=== PATIENT | male | born 1965 | race Caucasian/White ===

== ENCOUNTER 2024-08-02 04:55 | Observation (INO) ==
--- NOTE | 2024-07-05 08:49 | PAT Medication Instructions ---
Medication Instructions Date of Service July 05, 2024 Home Medications Vitamin C 1 tab PO DAILY Vitamin D3 1 tab PO QAM magnesium 250 mg tablet 250 mg PO QAM DO NOT take the morning of surgery Vitamin C 1 tab PO DAILY Vitamin D3 1 tab PO QAM magnesium 250 mg tablet 250 mg PO QAM Other Notes OTHERWISE NOTHING TO EAT OR DRINK AFTER MIDNIGHT. If you have any questions please call us at [phone] or [phone] or [phone] or [phone]
--- NOTE | 2024-07-07 14:22 | Anesthesiology Consultation ---
Date of Service July 07, 2024 Assessment & Plan (1) Encounter for pre-operative examination: - Outpatient joint assessment: Patient is currently scheduled for inpatient pathway. If re-evaluated and patient/surgeon requests outpatient pathway, patient is acceptable candidate for outpatient joint program from anesthesia standpoint pending surgeon's office assessment of pt motivation/support/completion of same day joint program preop requirements. Chart Review Chart Review: Acceptable Risk for Surgery and Patient seen in Pre Admission Testing Teaching & Discussion Pre-Anesthesia Teaching/Discussion Notes: Instructed NPO after midnight before surgery, except medications with 15 cc of water. Medication instructions provided according to the PAT guidelines. History Surgery Operation Date: 08/02/24 12:00 Proposed Procedures p Left Total Knee Arthroplasty - Prateek Justin, Height/Weight Height: 6 ft 2 in Weight: 102.8 kg Allergies Allergy/AdvReac Type Severity Reaction Status Date / Time No Known Allergies Allergy Verified 07/02/24 16:01 Medications Home Medications Medication Instructions Recorded Confirmed Last Taken Vitamin C 1 tab PO DAILY 07/02/24 07/02/24 Unknown Vitamin D3 1 tab PO QAM 07/02/24 07/02/24 Unknown magnesium 250 mg tablet 250 mg PO QAM 07/02/24 07/02/24 Unknown Past Medical History Medical History Arthritis History of cardiac murmur as a child History of COVID-19 (~2020) 08/2020, [facility], not hosp; asymptomatic Osteoarthritis Peripheral neuropathy bilateral feet 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 Exercise / Class Metabolic Activity II 4-5 Yardwork/Stairs/Walk up hill (denies chest discomfort or shortness of breath with one flight of stairs) Past Family History Family History Father Prostate cancer Mother Myocardial infarction Other No family history of adverse response to anesthesia Denies family history of Ovarian cancer Breast cancer Colorectal cancer Past Surgical History Surgical History H/O hernia repair 2 repairs History of knee surgery Rt History of thumb surgery left Hx of colonoscopy Past Anesthesia History No Hx of Anesthesia Complications and No Family Hx of Anesthesia Complications History of PONV No Hx of PONV and No Hx of Motion Sickness Social History Smoking Status: Never smoker Do You Dip or Chew Tobacco: No Hx Alcohol Use: Yes Alcohol type: beer alcohol intake frequency: a few times a week Hx Substance Use: No substance use type: does not use Review of Systems Snoring, denies witnessed apneas. Patient denies chest pain, shortness of breath, dyspnea on exertion, reflux, fever, chills, cough, wheezing, or palpitations. Physical Exam Vital Signs Vitals BP 121/81 P 70 TEMP 98.3 SP02 95% on RA RESP 18 Physical Patient resting comfortably in chair in no acute distress, alert and oriented, responding appropriately throughout visit Full cervical extension range of motion without pain TMD 3.5 finger breadths Mallampati Score 2 Dentition: intact, denies chipped or loose teeth, caps/crowns, implants or bridges Lungs: normal respiratory effort. Good air movement, clear throughout to auscultation, no adventitious breath sounds Cardiac: regular rate and rhythm, no murmurs noted Carotid arteries: negative bruit bilat Lab Results Anesthesia Preop Results Results Anesthesia Widget: WBC 7.04 K/ul (4.8-10.8) 07/07/24 Hgb 14.7 g/dl (14.0-18.0) 07/07/24 Hct 44.6 % (42.0-52.0) 07/07/24 Plt 234 K/uL (130-400) 07/07/24 Na 140 mmol/L (136-145) 07/07/24 K 4.5 mmol/L (3.5-5.1) 07/07/24 Cl 107 mmol/L (98-107) 07/07/24 CO2 28 mmol/L (21-32) 07/07/24 BUN 20 mg/dl (6-23) 07/07/24 Creat 0.98 mg/dl (0.6-1.4) 07/07/24 Glucose Level 102 mg/dl (70-99(Fasting)) H 07/07/24 PT 10.9 Seconds (9.0-12.0) 07/07/24 PTT 24 Seconds (21-31) 07/07/24 INR 1.0 (0.9-1.1) 07/07/24 Blood Type O Positive 07/07/24 Antibody Screen NEGATIVE 07/07/24 Testing Electrocardiogram Date: 07/07/24 Sinus rhythm with occasional PVCs, rate 65 bpm Chest X-Ray Date: 07/07/24 No acute cardiopulmonary disease.
[2024-08-02] MEDS: LR 500ML BOLUS, THEN 15ML/HR IV SCH (05:48)
[2024-08-02] MEDS: GABAPENTIN 900 MG DOSE PO SCH (05:49)
[2024-08-02] MEDS: LR 60ML/HR IV SCH (05:49)
[2024-08-02] MEDS: dexAMETHasone**PF** 10 MG/ML VIAL IV SCH (05:49)
[2024-08-02] MEDS: FAMOTIDINE 20 MG TAB PO SCH (05:49)
[2024-08-02] MEDS: ACETAMINOPHEN 500 MG TAB PO SCH (05:49)
[2024-08-02] MEDS ORDERED: BUPIVACAINE 0.5 % 5 MG/1 ML PF 10ML VIAL ONE (06:27)
[2024-08-02] MEDS ORDERED: ROPIVACAINE 0.5% 5 MG/ML 30 ML VIAL ONE (06:27)
[2024-08-02] MEDS ORDERED: ATROPINE SULFATE 0.1 MG/ML 10ML SYR IV PRN (06:37)
[2024-08-02] MEDS ORDERED: fentaNYL citrate PF 100 MCG/2 ML VIAL IV PRN (06:37)
[2024-08-02] MEDS ORDERED: ePHEDrine sulfate 50 MG/ML AMP IV PRN (06:37)
[2024-08-02] MEDS ORDERED: ONDANSETRON INJ 2 MG/ML 2 ML VIAL IV PRN ×2 (06:37→10:19)
[2024-08-02] MEDS ORDERED: MIDAZOLAM HCL 1 MG/ML 2ML VIAL ONE (06:39)
[2024-08-02] MEDS ORDERED: fentaNYL citrate PF 100 MCG/2 ML VIAL ONE (06:39)
--- NOTE | 2024-08-02 06:39 | History & Physical Bridge Note ---
Date of Service August 02, 2024 History & Physical Bridge Note I have examined the patient, reviewed the History & Physical and in the interval since the performance of the History & Physical I have noted the following changes of clinical significance: no changes noted
[2024-08-02] MEDS ORDERED: PROPOFOL IV EMULSION 10 MG/ML 20 ML VIAL IV ONE (06:44)
[2024-08-02] MEDS: TRANEXAMIC ACID 1,000 MG **IV Pre-op IV SCH (06:44)
[2024-08-02] MEDS ORDERED: LIDOCAINE 2% 2 ML VIAL/AMP(20MG/ML) INFIL ONE (06:48)
[2024-08-02] MEDS: ceFAZolin 2000MG 2,000 MG/15 ML SYR IV SCH ×2 (06:59→13:59)
[2024-08-02] MEDS: ROPIV 0.5% 246mg, Ketorolac 30mg, EPINEPHrine 0.5mg in NSS INFIL SCH (07:30)
[2024-08-02] MEDS: ORTHO JOINT ANESTHETIC ONE (07:32)
[2024-08-02] MEDS: TRANEXAMIC ACID 1,000 MG **IV Intra-op IV SCH (07:55)
--- NOTE | 2024-08-02 08:21 | Operative Report ---
PG Post Operative Report Pre & Post Diagnosis Operation Date: 08/02/24 07:00 Pre-Op Diagnosis: Left Knee Osteoarthritis Post-Op Diagnosis: Left Knee Osteoarthritis I identified the patient and participated in the time-out.: Yes Procedure Operation Date: 08/02/24 07:00 Actual Procedures p Left Total Knee Arthroplasty(Left) - Prateek Justin DO Surgeon Prateek Justin DO [employer] Utility Worker None Estimated Blood Loss 30 Findings Consistent with Post-Op Diagnosis Specimens Left femoral and tibial bone Description of Procedure Implants used: I used a Chepe Persona total knee arthroplasty system with a size 12 standard PS femur, G tibia, 37 oval patella, and a size 12 CPS polyethylene bearing. All components were cemented in place with Biomet cement. Crow benites [facility] for the above procedure. He was seen in the preoperative holding area and the operative extremity was identified and signed. He was given a preoperative antibiotic, TXA, a spinal anesthetic and an adductor nerve block. He was taken back to the operating room and laid on the table in supine position. He was given basic sedation. The operative knee was then prepped and draped in sterile fashion. A timeout was done, and the patient and the operative extremity was properly identified. A midline incision was made directly over the patella. Dissection was taken down to the extensor mechanism. A medial parapatellar arthrotomy was used. The medial retinaculum was released and the fat pad was mostly excised. The knee was flexed and the ACL, PCL, and meniscus were removed. A drill was sent down the center of the femoral canal followed by an intramedullary marisa. Off that marisa a distal femoral cutting block was placed. 9 mm was resected off the distal femur at 5 of valgus. A posterior referencing AP sizing guide was then placed on the distal femur. The femur measured to be a size 12. 2 drill holes were placed in 3 of external rotation. A 4-in-1 cutting block was then impacted into place. Anterior, posterior, and chamfer cuts were then made. The proximal tibia was then exposed. An external tibial alignment guide was placed. A tibial cut guide was then anchored in place and the proximal tibia was then resected. The posterior aspect of the knee was then opened up and any additional meniscus fragments and osteophytes were removed. The tibia measured to be a size G. The tibial plate was then placed in the appropriate rotation and the tibia was drilled and punched. Trial components were then placed. I used a size 12 CPS polyethylene insert. The knee was brought through a full range of motion and felt to be stable. The peg holes for the femoral component were then drilled. The patella was then everted and 9 mm was resected off the posterior aspect of the patella. The patella measured to be a size 37 oval. 3 peg holes were then drilled. A trial patella was placed. The knee was once again brought through a full range of motion and felt to be stable. Trial components were then removed. The surrounding soft tissues were injected with 100 cc of an orthopedic pain control cocktail. All components were then cemented into place with Biomet cement. The final polyethylene insert was then snapped into place. Once cement was dry the tourniquet was deflated. Hemostasis was obtained. A dilute betadyne lavage was then done for 3 minutes. The joint was then irrigated with normal saline solution. The medial parapatellar arthrotomy was then closed with #1 Vicryl suture. The skin was closed with 2-0 Vicryl, 3-0V lock suture, and sierra. A soft compressive dressing was placed. He was then transferred to a hospital bed and taken to the postanesthesia care unit in stable condition. He tolerated the procedure well. I attest to the content of the Intraoperative Record and any orders documented therein. Any exceptions are noted below.
--- NOTE | 2024-08-02 09:07 | XRay Report ---
XR knee LT 1 or 2V routine HISTORY: 59 years-old Male Surgical Post Op COMPARISON: Knee MRI 01-08 TECHNIQUE: 2 views of the left knee FINDINGS: Total joint arthroplasty with patellar surfacing. Anterior midline skin sierra with expected postope rative soft tissue swelling and deep tissue air. No acute fracture or unexpected opaque foreign body. IMPRESSION: Satisfactory alignment of the total joint arthroplasty. ACT 112: Negative or not required by law. The above report was generated using voice recognition software. It may contain grammatical, syntax o r spelling errors. Electronically signed by: Semaj Mesa M.D. 08/02/2024 9:05 AM
--- NOTE | 2024-08-02 10:02 | Anesthesiology Progress Note ---
Date of Service August 02, 2024 Anesthesia Post Procedure Vital Signs Vital Signs: Temp Pulse Pulse Resp BP Pulse Ox O2 Del Method 08/02/24 09:50 57 L 18 123/79 97 Nasal Cannula 08/02/24 09:40 53 L 12 121/73 97 Nasal Cannula 08/02/24 09:30 54 L 16 125/75 97 Nasal Cannula 08/02/24 09:20 36.5 C 52 L 14 112/72 98 Nasal Cannula 08/02/24 09:10 56 L 18 108/76 97 Nasal Cannula 08/02/24 09:00 54 L 16 119/75 97 Nasal Cannula 08/02/24 08:50 61 16 108/77 95 Nasal Cannula 08/02/24 08:40 54 L 16 114/67 97 Oxymask 08/02/24 08:30 61 18 108/65 93 Oxymask 08/02/24 08:24 36 C L 64 16 107/69 95 Oxymask 08/02/24 05:40 36.7 C 64 18 121/81 97 Room Air O2 Flow Rate 08/02/24 09:50 2 08/02/24 09:40 2 08/02/24 09:30 2 08/02/24 09:20 3 08/02/24 09:10 3 08/02/24 09:00 3 08/02/24 08:50 3 08/02/24 08:40 4 08/02/24 08:30 6 08/02/24 08:24 6 08/02/24 05:40 Notes Mental Status: alert / awake / arousable Patient Amnestic to Procedure: Yes Nausea / Vomiting: adequately controlled Pain: adequately controlled Airway Patency, RR, SpO2: stable & adequate BP & HR: stable & adequate Hydration State: stable & adequate Neuraxial Anesthesia: was administered and sensory block is resolving Anesthetic Complications: no major complications apparent
[2024-08-02] MEDS ORDERED: bisacodyL 10 MG SUPP PR PRN (10:19)
[2024-08-02] MEDS ORDERED: MAGNESIUM HYDROXIDE SUSP 30 ML UDC PO PRN (10:19)
[2024-08-02] MEDS ORDERED: NALOXONE HCL 0.4 MG/1 ML VIAL/CARP IV PRN (10:19)
[2024-08-02] MEDS ORDERED: METOCLOPRAMIDE HCL INJ 5 MG/ML 2 ML VIAL IV PRN (10:19)
[2024-08-02] MEDS ORDERED: NON-FORMULARY MEDICATION (Magnesium 250 mg Tablet) PO SCH (10:19)
[2024-08-02] MEDS ORDERED: HYDROmorphone INJ 0.5 MG/0.5 ML SYR IV PRN (10:19)
[2024-08-02] MEDS: DOCUSATE SODIUM 100 MG CAP PO SCH (11:01)
[2024-08-02] MEDS: MULTIVITAMIN TAB PO SCH (11:01)
[2024-08-02] MEDS: ASPIRIN 81 MG ECTAB PO SCH (11:01)
[2024-08-02] MEDS: CHOLECALCIFEROL 10 MCG (400 UNITS) TAB PO SCH (11:01)
[2024-08-02] MEDS: KETOROLAC 30 MG/ML VIAL IV SCH (12:24)
[2024-08-02] MEDS: oxyCODONE HCL IR 5 MG TAB (IMMEDIATE RELEASE) PO PRN (15:43)
[2024-08-02] MEDS: SENNA 8.6 MG TAB PO SCH (20:04)
[2024-08-03 03:57] VITALS: PULSE 65
--- NOTE | 2024-08-03 06:17 | Orthopedic Progress Note ---
Date of Service August 03, 2024 Assessment & Plan (1) Status post left knee replacement: Overall he is doing very well. He is not having much pain in the left knee. He will be seen by physical therapy today for ambulation and range of motion exercises. The nursing staff can change his dressing after physical therapy. He is on aspirin for DVT prophylaxis. He can be discharged to home later today. He will follow-up with orthopedics in 2 weeks. Subjective Crow was seen and examined at bedside this morning. Overall he is doing very well. He is not having much pain in the left knee. He has been up and ambulating to the bathroom. He is no complaints.. Review of Systems All systems reviewed & are unremarkable except as noted in HPI & below. Physical Exam On physical examination of the left knee, the dressing is clean and dry. His leg is out full extension. He has active dorsiflexion plantarflexion of the left ankle.. Results & Data Results & Data Laboratory Results . Diagnostic Findings Postoperative x-rays of the left knee show the prosthesis to be in anatomic alignment without any evidence of fracture, dislocation, or loosening.. PG Care Time/CCT Total # of Minutes Spent Total Time Spent with Patient: Total time spent is greater than 50% in coordination of care (as documented) at patient's floor/unit and/or counseling patient: Coding Level of Care Code 71812 Post Operative Follow-Up Diagnoses Status post left knee replacement Z96.652
--- NOTE | 2024-08-03 06:18 | Discharge Summary ---
Date of Service August 03, 2024 Principal Diagnosis Same as "Discharge Diagnosis" noted below under Discharge Instructions. Discharge Exam On physical examination of the left knee, the dressing is clean and dry. His leg is out full extension. He has active dorsiflexion plantarflexion of the left ankle.. Discharge Data Procedures Performed Operation Date: 08/02/24 07:00 Actual Procedures p Left Total Knee Arthroplasty(Left) - Prateek Justin DO Ordered Studies 08/02/24 05:00 US - OR guided needle placemen Routine Hospital Course (1) Status post left knee replacement: On August 02, 2024 Crow arrived at [facility] and underwent a left knee replacement without complication. He had a spinal anesthetic. Postoperatively he was started on aspirin for DVT prophylaxis and transferred to the general orthopedic floors. His hospital course has been uneventful. On postop day #1, his vital signs were stable and his pain was well-controlled. He was able to participate well with physical therapy doing ambulation and range of motion exercises. He was then discharged to home. He will follow-up with orthopedics in 2 weeks. PG Care Time/CCT Total # of Minutes Spent Total Time Spent with Patient: Total time spent is greater than 50% in coordination of care (as documented) at patient's floor/unit and/or counseling patient: Discharge Plan Discharge Items Patient Disposition: Home - Self-Care Reason For Visit: Left Knee Arthritis Discharge Diagnosis: Left knee replacement Activity: Per Instructions section Non-emergency contact: Surgeon Call non-emergency contact if: your wound has increased redness and your wound has increased drainage Follow-up/Referrals: Imani Escamilla MD [Primary Care Provider] - Diet: Regular Addtl Attending Provider Instructions: Activity and Therapy Recommendations: * If you are using [facility] then therapy will be provided at your home until they feel you have accomplished all of your goals. * If you are using [facility] then Physical Therapy will be provided until they feel you are ready to start Outpatient Physical Therapy. * If you are not using home therapy then Outpatient Physical Therapy should start about 3-5 days from your day of surgery. Therapy will last about 6-10 weeks * It is important not to put a pillow under your knee when you are relaxing or sleeping. It is just as important to make sure you are getting your knee perfectly straight as it is to regain your knee bend. * You were shown a series of exercises in the hospital. Do these exercises three times each day including the exercises you were shown in physical therapy. * Get up and walk several times each day. For the first four weeks, try not to stand or walk for more than one hour at a time. If you do stand or walk for more than one hour, you will not hurt anything, but your leg will likely swell. * As you feel comfortable, you may change from the walker or crutches to a cane and then to independent walking. Medications: * Narcotic You will likely be sent home from the hospital with a prescription for the narcotic pain medication that worked best throughout your stay. * Cefadroxil -take the antibiotic twice a day for 10 days to help prevent infection. * Aspirin Most patients will be required to take Aspirin 81mg twice a day for 6 weeks after surgery. This is obtained [id number] and a prescription is not necessary. * Other medications may be prescribed for specific circumstances. If you have any questions, please call the office at . * Resume previous home medications unless otherwise instructed TEDs/Elastic Stockings: The white elastic stockings help limit swelling and prevent blood clots from forming in your legs.~ The more you wear them, the more they work. Wear them for six weeks. Dressing Care: The dressing can be changed after physical therapy on postop day #1. Daily dry dressing changes for a few days, especially if the incision is still draining some. If the incision is not draining then you may leave the sierra open to air. If there is a little bit of drainage or if the sierra are getting stuck on your clothing then cover the incision with a dry dressing. The sierra will be removed at your 2 week follow-up appointment. Showering: You may shower 5 days from the day of surgery as long as the incision is no longer draining. You may shower with the sierra exposed. Let soapy water run over the sierra and pat them dry. Do not scrub or soak the incision. Diet: You may resume your previous diet. Things To Watch For: * Drainage from the incision site that occurs more than one week after your surgery. * Increased redness at the incision site. * Fever above 102 degrees Fahrenheit. * Unusual chest pain or shortness of breath. * Call [facility] at with any of the above problems Follow-Up Visit: Follow-up with Dr. Justin's office 2-3 weeks after your day of surgery. We will remove your sierra and answer any questions. If you have any additional questions or concerns, Dr Justin is usually in the office at the same time and will be available An appointment was probably scheduled when you signed-up for surgery in the office. If you have any questions call Office Instructions: More detailed instructions as well as Frequently Asked Questions were provided in a folder by our office when you signed-up for surgery. Please review these instructions when you get home. If you have any further questions or concerns, please feel free to call the office at [phone] Pending Studies at Discharge: No Stand-Alone Forms: [facility] Medications and DC Order Prescriptions: New oxycodone 5 mg tablet 5 mg PO Q6H PRN (Reason: pain) Qty: 30 0RF cefadroxil 500 mg capsule 500 mg PO BID 10 Days Qty: 20 0RF aspirin [Adult Aspirin Regimen] 81 mg tablet,delayed release (DR/EC) 81 mg PO BID Qty: 84 0RF Continued magnesium 250 mg Tablet 250 mg PO QAM Vitamin C 1 tab PO DAILY Vitamin D3 1 tab PO QAM Discharge Orders: Discharge Order (Routine); Ordered 08/03/24 Ordered By: Prateek Justin Admission Data Admit Date/Time: 08/02/24 08:24 Attending Provider: Prateek Justin Admit Provider: Prateek Justin Primary Care Provider: Imani Escamilla
[2024-08-03 06:58] VITALS: RESP 16; TEMP 97.9; O2SAT 96
[2024-08-03] MEDS: ASCORBIC ACID 500 MG TAB PO SCH (07:25)
[2024-08-03] MEDS: dexAMETHasone 4 MG TAB PO SCH (07:25)
[2024-08-03 08:59] VITALS: BP 126/76
== END 2024-08-03 10:19 | disposition home or self-care (01) ==
LOC: ASU 04:55 → 3E 04:55
DX: M17.12 Unilateral primary osteoarthritis, left knee

== ENCOUNTER 2024-12-03 07:04 | Observation (INO) ==
--- NOTE | 2024-11-29 08:49 | Anesthesiology Consultation ---
Date of Service November 29, 2024 Assessment & Plan (1) Encounter for pre-operative examination: Chart Review Chart Review: Acceptable Risk for Surgery and Patient NOT seen in Pre Admission Testing Pt currently scheduled as 23 hours observation. If surgeon decides to change patient to Same Day Joint, patient would be acceptable risk for TKA, pending patient is motivated, has good support and surgeon's office completes Same Day Joint Program preop requirements. -Infectious Disease screening: Per [facility] nursing assessment on 11/23/24. No known infectious disease contacts in past 10 days or current infectious disease sympt oms. No recent travel outside the country. Left TKA 08/02/24= Done under [facility] at L3-4 with 1 attempt History Surgery Operation Date: 12/03/24 10:00 Proposed Procedures p Right Total Knee Arthroplasty - Prateek Justin DO Height/Weight Height: 6 ft 2 in Weight: 99.79 kg Allergies Allergy/AdvReac Type Severity Reaction Status Date / Time No Known Allergies Allergy Verified 11/23/24 12:18 Medications Home Medications Medication Instructions Recorded Confirmed Last Taken Vitamin C 1 tab PO DAILY 07/02/24 11/23/24 07/26/24 Vitamin D3 1 tab PO QAM 07/02/24 11/23/24 07/26/24 magnesium 250 mg tablet 400 mg PO QAM 07/02/24 11/23/24 07/26/24 aspirin 81 mg tablet,delayed 81 mg PO BID #84 tabs 08/02/24 11/23/24 Unknown release (Adult Aspirin Regimen) oxycodone 5 mg tablet 5 mg PO Q6H PRN pain #30 tabs 08/02/24 11/23/24 Unknown vitamin B6-vitamin E-magnesium 1 tab PO QAM 11/23/24 11/23/24 Unknown tablet zinc acetate 50 mg (zinc) capsule 50 mg PO DAILY 11/23/24 11/23/24 Unknown Past Medical History Medical History History of cardiac murmur as a child no murmur noted at PAT appt 07/07/2024 History of COVID-19 (~2020) 08/2020, [facility] hosp; asymptomatic Osteoarthritis Peripheral neuropathy bilateral feet 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, patient does not know what caused it, does not follow with neurology Past Family History Family History Father Prostate cancer Mother Myocardial infarction Other No family history of adverse response to anesthesia Denies family history of Ovarian cancer Breast cancer Colorectal cancer Past Surgical History Surgical History H/O hernia repair inguinal hernia bilat History of knee surgery right History of thumb surgery left History of total knee replacement left Hx of colonoscopy Social History Smoking Status: Never smoker Do You Dip or Chew Tobacco: No (quit over 10 yrs ago) Hx Alcohol Use: Yes Alcohol type: beer alcohol intake frequency: a few times a week Hx Substance Use: No substance use type: does not use Lab Results Anesthesia Preop Results Results Anesthesia Widget: WBC 5.79 K/ul (4.8-10.8) 11/27/24 Hgb 14.3 g/dl (14.0-18.0) 11/27/24 Hct 44.2 % (42.0-52.0) 11/27/24 Plt 247 K/uL (130-400) 11/27/24 Na 141 mmol/L (136-145) 11/27/24 K 4.3 mmol/L (3.5-5.1) 11/27/24 Cl 112 mmol/L (98-107) H 11/27/24 CO2 26 mmol/L (21-32) 11/27/24 BUN 17 mg/dl (6-23) 11/27/24 Creat 0.90 mg/dl (0.6-1.4) 11/27/24 Glucose Level 112 mg/dl (70-99(Fasting)) H 11/27/24 PT 11.0 Seconds (9.0-12.0) 11/27/24 PTT 24 Seconds (21-31) 11/27/24 INR 1.0 (0.9-1.1) 11/27/24 Blood Type O Positive 11/27/24 Antibody Screen NEGATIVE 11/27/24 Testing Electrocardiogram Date: 07/07/24 Sinus rhythm with occasional PVCs, rate 65 bpm Chest X-Ray Date: 07/07/24 No acute cardiopulmonary disease.
--- NOTE | 2024-12-01 07:45 | History & Physical Report ---
Date of Service December 01, 2024 Assessment & Plan (1) Status post left knee replacement: We will proceed with a right total knee arthroplasty. Postoperatively, he will be started on aspirin for DVT prophylaxis and kept overnight in the hospital for postop medical management. He plans to go to outpatient physical therapy at [facility] after discharge. History of Present Illness Chief Complaint: Osteoarthritis of the right knee. Primary Care Provider: Imani Escamilla MD Crow is a pleasant 59-year-old male who I did a left knee replacement on about 6 months ago. He is doing very well with that. Unfortunately, he is dealing with right knee pain. X-rays and clinical exam have been diagnostic for advanced arthritis of the right knee. After failed conservative treatment, he has elected to proceed with a right total knee arthroplasty.. Allergies Allergy/AdvReac Type Severity Reaction Status Date / Time No Known Allergies Allergy Verified 11/23/24 12:18 Home Medications Medication Instructions Recorded Confirmed Type Vitamin C 1 tab PO DAILY 07/02/24 11/23/24 History Vitamin D3 1 tab PO QAM 07/02/24 11/23/24 History magnesium 250 mg tablet 400 mg PO QAM 07/02/24 11/23/24 History aspirin 81 mg tablet,delayed 81 mg PO BID #84 tabs 08/02/24 11/23/24 Rx release (Adult Aspirin Regimen) oxycodone 5 mg tablet 5 mg PO Q6H PRN pain #30 tabs 08/02/24 11/23/24 Rx vitamin B6-vitamin E-magnesium 1 tab PO QAM 11/23/24 11/23/24 History tablet zinc acetate 50 mg (zinc) capsule 50 mg PO DAILY 11/23/24 11/23/24 History Past Med/Surg History Problem List Status post left knee replacement (~07/2024) Osteoarthritis of left knee Encounter for pre-operative examination Paresthesia of right lower extremity Peripheral neuropathy Medical History 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, patient does not know what caused it, does not follow with neurology Osteoarthritis Peripheral neuropathy bilateral feet History of COVID-19 (~2020) 08/2020, tested at [facility], not hosp; asymptomatic History of cardiac murmur as a child no murmur noted at PAT appt 07/07/2024 Surgical History History of total knee replacement left Hx of colonoscopy History of knee surgery right History of thumb surgery left H/O hernia repair inguinal hernia bilat Family History Father Prostate cancer Mother Myocardial infarction Other No family history of adverse response to anesthesia Denies family history of Ovarian cancer Breast cancer Colorectal cancer Social History Smoking Status: Never smoker Tobacco Type: Cigarettes and Smokeless Tobacco (Dip or Chew) Age Started Using Tobacco: 18; Age Quit Using Tobacco: 22; Second Hand Exposure: No; Do You Dip or Chew Tobacco: No (quit over 10 yrs ago); Hx Alcohol Use: Yes Alcohol type: beer Alcohol Intake Frequency: 2-3 x/Week Hx Substance Use: No Preferred Language: Citizen Of [place] Communication Ability: Effective Visual Impairment: No Limitations Hearing Ability: Hard of Hearing Scallop Shucker Required: No Beliefs That Will Affect Care: None marital status: Current Living Situation: Spouse Current Living Situation Comment: Lives with spouse, son, daughter, son-in-law, grandson, granddaughter current occupational status: employed current occupation: General Manager/Scheduler Feels Safe at Home: Yes Diet: regular caffeine: Yes (Coffee and Soda) Dental Care, Regularly: Yes Physical Activity Frequency: Daily Seatbelt Use: always Sunscreen Use: No Assistive Devices: Glasses Review of Systems All systems reviewed & are unremarkable except as noted in HPI & below. Physical Exam On physical exam of the right knee, he has a slight varus deformity. Tenderness palpation of the distal medial femoral condyle and over the medial joint line.. Constitutional WD/WN, vitals as above Eyes PERRL, conjunctivae normal, anicteric sclerae ENMT external ear and nose normal, oropharynx normal Neck trachea midline, no thyromegaly Respiratory normal respiratory effort Cardiovascular RRR, no murmur, no edema Gastrointestinal (Abdomen) normal bowel sounds, soft, nontender, no hepatosplenomegaly Psychiatric A+Ox3, euthymic affect Results & Data Results & Data Laboratory Results . Diagnostic Findings X-rays of the right knee show advanced osteoarthritis with joint space narrowing, osteophyte formation, and [id number] articulation. PG Care Time/CCT Total # of Minutes Spent Total Time Spent with Patient: Total time spent is greater than 50% in coordination of care (as documented) at patient's floor/unit and/or counseling patient: Coding Level of Care Code None Diagnoses Status post left knee replacement Z96.652
[~2024-12-03 07:04] MED LIST: ROPIVACAINE 0.5% 5 MG/ML 30 ML VIAL ONE
[2024-12-03] MEDS ORDERED: ONDANSETRON INJ 2 MG/ML 2 ML VIAL ONE (07:28)
[2024-12-03] MEDS ORDERED: MIDAZOLAM HCL 1 MG/ML 2ML VIAL ONE (07:28)
[2024-12-03] MEDS ORDERED: PROPOFOL IV EMULSION 10 MG/ML 20 ML VIAL IV ONE ×2 (07:29→10:02)
[2024-12-03] MEDS: GABAPENTIN 900 MG DOSE PO SCH (07:39)
[2024-12-03] MEDS: LR 500ML BOLUS, THEN 15ML/HR IV SCH (07:39)
[2024-12-03] MEDS: dexAMETHasone**PF** 10 MG/ML VIAL IV SCH (07:40)
[2024-12-03] MEDS: FAMOTIDINE 20 MG TAB PO SCH (07:40)
[2024-12-03] MEDS: LR 60ML/HR IV SCH (07:40)
[2024-12-03] MEDS: ACETAMINOPHEN 500 MG TAB PO SCH ×2 (07:40→14:31)
--- NOTE | 2024-12-03 08:02 | History & Physical Bridge Note ---
Date of Service December 03, 2024 History & Physical Bridge Note I have examined the patient, reviewed the History & Physical and in the interval since the performance of the History & Physical I have noted the following changes of clinical significance: no changes noted
[2024-12-03] MEDS ORDERED: ePHEDrine sulfate 50 MG/ML AMP IV PRN (08:38)
[2024-12-03] MEDS ORDERED: ATROPINE SULFATE 0.1 MG/ML 10ML SYR IV PRN (08:38)
[2024-12-03] MEDS ORDERED: HYDROmorphone INJ 1 MG/ML SYRINGE IV PRN (08:38)
[2024-12-03] MEDS ORDERED: ONDANSETRON INJ 2 MG/ML 2 ML VIAL IV PRN ×2 (08:38→12:48)
[2024-12-03] MEDS ORDERED: KETOROLAC 30 MG/ML VIAL IV PRN (08:38)
[2024-12-03] MEDS: TRANEXAMIC ACID 1,000 MG **IV Pre-op IV SCH (08:45)
[2024-12-03] MEDS: ceFAZolin 2000MG 2,000 MG/15 ML SYR IV SCH (08:58)
[2024-12-03] MEDS: ORTHO JOINT ANESTHETIC ONE (09:23)
[2024-12-03] MEDS: ROPIV 0.5% 246mg, Ketorolac 30mg, EPINEPHrine 0.5mg in NSS INFIL SCH (09:35)
[2024-12-03] MEDS: TRANEXAMIC ACID 1,000 MG **IV Intra-op IV SCH (10:00)
--- NOTE | 2024-12-03 10:11 | Operative Report ---
PG Post Operative Report Pre & Post Diagnosis Operation Date: 12/03/24 09:00 Pre-Op Diagnosis: Osteoarthritis of the right knee Post-Op Diagnosis: Osteoarthritis of the right knee I identified the patient and participated in the time-out.: Yes Procedure Operation Date: 12/03/24 09:00 Actual Procedures p Right Total Knee Arthroplasty, Cemented(Right) - Prateek Justin DO Surgeon Prateek Justin DO [employer] A[employer] David Villarreal PA-C Estimated Blood Loss 50 Findings Consistent with Post-Op Diagnosis Specimens Right femoral and tibial bone Description of Procedure Implants used: I used a Chepe Persona total knee arthroplasty system with a size 12 standard PS femur, G tibia, 37 oval patella, and a size 12 CPS polyethylene bearing. All components were cemented in place with Biomet cement. Corw arrived [facility] for the above procedure. He was seen in the preoperative holding area and the operative extremity was identified and signed. He was given a preoperative antibiotic, TXA, a spinal anesthetic and an adductor nerve block. He was taken back to the operating room and laid on the table in supine position. He was given basic sedation. The operative knee was then prepped and draped in sterile fashion. A timeout was done, and the patient and the operative extremity was properly identified. A midline incision was made directly over the patella. Dissection was taken down to the extensor mechanism. A medial parapatellar arthrotomy was used. The medial retinaculum was released and the fat pad was mostly excised. The knee was flexed and the ACL, PCL, and meniscus were removed. A drill was sent down the center of the femoral canal followed by an intramedullary marisa. Off that marisa a distal femoral cutting block was placed. 9 mm was resected off the distal femur at 5 of valgus. A posterior referencing AP sizing guide was then placed on the distal femur. The femur measured to be a size 12. 2 drill holes were placed in 3 of external rotation. A 4-in-1 cutting block was then impacted into place. Anterior, posterior, and chamfer cuts were then made. The proximal tibia was then exposed. An external tibial alignment guide was placed. A tibial cut guide was then anchored in place and the proximal tibia was then resected. The posterior aspect of the knee was then opened up and any additional meniscus fragments and osteophytes were removed. The tibia measured to be a size G. The tibial plate was then placed in the appropriate rotation and the tibia was drilled and punched. Trial components were then placed. I used a size 12 CPS polyethylene insert. The knee was brought through a full range of motion and felt to be stable. The peg holes for the femoral component were then drilled. The patella was then everted and 9 mm was resected off the posterior aspect of the patella. The patella measured to be a size 37 oval. 3 peg holes were then drilled. A trial patella was placed. The knee was once again brought through a full range of motion and felt to be stable. Trial components were then removed. The surrounding soft tissues were injected with 100 cc of an orthopedic pain control cocktail. All components were then cemented into place with Biomet cement. The final polyethylene insert was then snapped into place. Once cement was dry the tourniquet was deflated. Hemostasis was obtained. A dilute betadyne lavage was then done for 3 minutes. The joint was then irrigated with normal saline solution. The medial parapatellar arthrotomy was then closed with #1 Vicryl suture. The skin was closed with 2-0 Vicryl, 3-0V lock suture, and sierra. A soft compressive dressing was placed. He was then transferred to a hospital bed and taken to the postanesthesia care unit in stable condition. He tolerated the procedure well. David Villarreal PA-C, was present for the entire procedure. He was critical for patient positioning, prepping, draping, retraction exposure, wound closure and application of sterile dressing. I attest to the content of the Intraoperative Record and any orders documented therein. Any exceptions are noted below.
--- NOTE | 2024-12-03 10:55 | XRay Report ---
XR knee RT 1 or 2V routine CLINICAL HISTORY: Surgical Post Op COMPARISON: None FINDINGS: Right knee prosthesis shows no hardware complication. There is expected soft tissue gas. S kin sierra are present. IMPRESSION: Unremarkable postoperative exam. ACT 112: Negative or not required by law. Electronically signed by: Nayan Coker M.D. 12/03/2024 10:54 AM
--- NOTE | 2024-12-03 11:19 | Anesthesiology Progress Note ---
Date of Service December 03, 2024 Anesthesia Post Procedure Vital Signs Vital Signs: Temp Pulse Resp BP Pulse Ox O2 Del Method O2 Flow Rate 12/03/24 11:10 36.5 C 67 14 112/65 96 Room Air 12/03/24 11:00 57 L 16 108/65 98 Oxymask 2 12/03/24 10:50 59 L 20 105/66 97 Oxymask 4 12/03/24 10:40 74 18 123/70 98 Oxymask 4 12/03/24 10:33 36.2 C L 62 12 113/66 97 Oxymask 4 12/03/24 07:27 36.7 C 68 18 148/86 H 94 Room Air Transfer of Care Handoff Completed per policy Notes Mental Status: alert / awake / arousable Patient Amnestic to Procedure: Yes Nausea / Vomiting: adequately controlled Pain: adequately controlled Airway Patency, RR, SpO2: stable & adequate BP & HR: stable & adequate Hydration State: stable & adequate Neuraxial Anesthesia: was administered and sensory block is resolving Anesthetic Complications: no major complications apparent
[2024-12-03] MEDS ORDERED: bisacodyL 10 MG SUPP PR PRN (12:48)
[2024-12-03] MEDS ORDERED: NALOXONE HCL 0.4 MG/1 ML VIAL/CARP IV PRN (12:48)
[2024-12-03] MEDS ORDERED: METOCLOPRAMIDE HCL INJ 5 MG/ML 2 ML VIAL IV PRN (12:48)
[2024-12-03] MEDS ORDERED: MAGNESIUM HYDROXIDE SUSP 30 ML UDC PO PRN (12:48)
[2024-12-03] MEDS: KETOROLAC TROMETHAMINE 15 MG/ML VIAL IV SCH (14:30)
[2024-12-03] MEDS: oxyCODONE HCL IR 5 MG TAB (IMMEDIATE RELEASE) PO PRN (15:37)
[2024-12-03] MEDS: HYDROmorphone INJ 0.5 MG/0.5 ML SYR IV PRN (18:06)
[2024-12-03] MEDS: ceFAZolin 1000MG 1,000 MG/7.5 ML SYR IV SCH (19:37)
[2024-12-03] MEDS: DOCUSATE SODIUM 100 MG CAP PO SCH (20:57)
[2024-12-03] MEDS: SENNA 8.6 MG TAB PO SCH (20:57)
[2024-12-03] MEDS: ASPIRIN 81 MG ECTAB PO SCH (20:58)
[2024-12-04 03:37] VITALS: RESP 16; O2SAT 97
--- NOTE | 2024-12-04 06:51 | Orthopedic Progress Note ---
Date of Service December 04, 2024 Assessment & Plan (1) Status post right knee replacement: Overall he is doing very well. He is not having much pain in the right knee. He will be seen by physical therapy today for ambulation and range of motion exercises. The nursing staff can change his dressing after physical therapy. He is on aspirin for DVT prophylaxis. He can be discharged to home later today. He will follow-up with orthopedics in 2 weeks. Subjective Crow was seen and examined at bedside this morning. Overall is doing very well. He is not having much pain in the right knee. He has been up and ambulating to the bathroom. He has no complaints.. Review of Systems All systems reviewed & are unremarkable except as noted in HPI & below. Physical Exam On physical exam of the right knee, the dressing is clean and dry. His leg is out full extension. He has active dorsiflexion and plantarflexion of his right ankle.. Results & Data Results & Data Laboratory Results . Diagnostic Findings Postoperative x-rays of the right knee show the prosthesis to be in anatomic alignment without any evidence of fracture, dislocation, or loosening.. PG Care Time/CCT Total # of Minutes Spent Total Time Spent with Patient: Total time spent is greater than 50% in coordination of care (as documented) at patient's floor/unit and/or counseling patient: Coding Level of Care Code 74733 Post Operative Follow-Up Diagnoses Status post right knee replacement Z96.651
--- NOTE | 2024-12-04 06:51 | Discharge Summary ---
Date of Service December 04, 2024 Admission HPI (Per Admitting) Crow is a pleasant 59-year-old male who I did a left knee replacement on about 6 months ago. He is doing very well with that. Unfortunately, he is dealing with right knee pain. X-rays and clinical exam have been diagnostic for advanced arthritis of the right knee. After failed conservative treatment, he has elected to proceed with a right total knee arthroplasty.. Admission Exam (Per Admitting) On physical exam of the right knee, he has a slight varus deformity. Tenderness palpation of the distal medial femoral condyle and over the medial joint line.. Principal Diagnosis Same as "Discharge Diagnosis" noted below under Discharge Instructions. Discharge Exam On physical exam of the right knee, the dressing is clean and dry. His leg is out full extension. He has active dorsiflexion and plantarflexion of his right ankle.. Discharge Data Procedures Performed Operation Date: 12/03/24 09:00 Actual Procedures p Right Total Knee Arthroplasty, Cemented(Right) - Prateek Justin DO Ordered Studies 12/03/24 05:00 US - OR guided needle placemen Routine Hospital Course (1) Status post right knee replacement: On December 03, 2024 Crow arrived at [facility] and underwent a right knee replacement without complication. He had a spinal anesthetic. Postoperatively, he was started on aspirin for DVT prophylaxis and transferred to the general orthopedic floors. His hospital course is uneventful. On postop day #1, his vital signs were stable and his pain was well-controlled. He was able to participate well with physical therapy doing ambulation and range of motion exercises. He was then discharged to home. He will follow-up with orthopedics in 2 weeks. PG Care Time/CCT Total # of Minutes Spent Total Time Spent with Patient: Total time spent is greater than 50% in coordination of care (as documented) at patient's floor/unit and/or counseling patient: Discharge Plan Discharge Items Patient Disposition: Home - Self-Care Reason For Visit: Right Knee Arthritis Discharge Diagnosis: Right knee replacement Activity: Per Instructions section Non-emergency contact: Surgeon Call non-emergency contact if: your wound has increased redness and your wound has increased drainage Follow-up/Referrals: Imani Escamilla MD [Primary Care Provider] - Diet: Regular Addtl Attending Provider Instructions: Activity and Therapy Recommendations: * If you are using [facility] then therapy will be provided at your home until they feel you have accomplished all of your goals. * If you are using [facility] then Physical Therapy will be provided until they feel you are ready to start Outpatient Physical Therapy. * If you are not using home therapy then Outpatient Physical Therapy should start about 3-5 days from your day of surgery. Therapy will last about 6-10 weeks * It is important not to put a pillow under your knee when you are relaxing or sleeping. It is just as important to make sure you are getting your knee perfectly straight as it is to regain your knee bend. * You were shown a series of exercises in the hospital. Do these exercises three times each day including the exercises you were shown in physical therapy. * Get up and walk several times each day. For the first four weeks, try not to stand or walk for more than one hour at a time. If you do stand or walk for more than one hour, you will not hurt anything, but your leg will likely swell. * As you feel comfortable, you may change from the walker or crutches to a cane and then to independent walking. Medications: * Narcotic You will likely be sent home from the hospital with a prescription for the narcotic pain medication that worked best throughout your stay. * Cefadroxil -take the antibiotic twice a day for 10 days to help prevent infection. * Aspirin Most patients will be required to take Aspirin 81mg twice a day for 6 weeks after surgery. This is obtained [id number] and a prescription is not necessary. * Other medications may be prescribed for specific circumstances. If you have any questions, please call the office at . * Resume previous home medications unless otherwise instructed TEDs/Elastic Stockings: The white elastic stockings help limit swelling and prevent blood clots from forming in your legs.~ The more you wear them, the more they work. Wear them for 2 weeks. Dressing Care: The dressing can be changed after physical therapy on postop day #1. Daily dry dressing changes for a few days, especially if the incision is still draining some. If the incision is not draining then you may leave the sierra open to air. If there is a little bit of drainage or if the sierra are getting stuck on your clothing then cover the incision with a dry dressing. The sierra will be removed at your 2 week follow-up appointment. Showering: You may shower 5 days from the day of surgery as long as the incision is no longer draining. You may shower with the sierra exposed. Let soapy water run over the sierra and pat them dry. Do not scrub or soak the incision. Diet: You may resume your previous diet. Things To Watch For: * Drainage from the incision site that occurs more than one week after your surgery. * Increased redness at the incision site. * Fever above 102 degrees Fahrenheit. * Unusual chest pain or shortness of breath. * Call [facility] at with any of the above problems Follow-Up Visit: Follow-up with Dr. Justin's office 2-3 weeks after your day of surgery. We will remove your sierra and answer any questions. If you have any additional questions or concerns, Dr Justin is usually in the office at the same time and will be available An appointment was probably scheduled when you signed-up for surgery in the office. If you have any questions call Office Instructions: More detailed instructions as well as Frequently Asked Questions were provided in a folder by our office when you signed-up for surgery. Please review these instructions when you get home. If you have any further questions or concerns, please feel free to call the office at [phone] Pending Studies at Discharge: No Stand-Alone Forms: [facility], Smoking Cessation Medications and DC Order Prescriptions: New cefadroxil 500 mg capsule 500 mg PO BID 10 Days Qty: 20 0RF oxycodone 5 mg tablet 5 mg PO Q6H PRN (Reason: pain) Qty: 30 0RF Continued zinc acetate 50 mg (zinc) Capsule 50 mg PO DAILY vitamin B6-vitamin E-magnesium Tablet 1 tab PO QAM magnesium 250 mg Tablet 400 mg PO QAM Vitamin C 1 tab PO DAILY Vitamin D3 1 tab PO QAM aspirin [Adult Aspirin Regimen] 81 mg tablet,delayed release (DR/EC) 81 mg PO BID Qty: 84 0RF Patient Comments: no longer taking 11/23/24 Discharge Orders: Discharge Order (Routine); Ordered 12/04/24 Ordered By: Prateek Justin Admission Data Admit Date/Time: 12/03/24 10:31 Attending Provider: Prateek Justin Admit Provider: Prateek Justin Primary Care Provider: Imani Escamilla
[2024-12-04] MEDS: MULTIVITAMIN TAB PO SCH (07:43)
[2024-12-04 07:49] VITALS: BP 136/76; TEMP 97.8
[2024-12-04] MEDS: dexAMETHasone 4 MG TAB PO SCH (08:31)
[2024-12-04 10:28] VITALS: PULSE 80
== END 2024-12-04 12:19 | disposition home or self-care (01) ==
LOC: PACUINP 07:04 → ASU 07:04 → 3N 14:10